=== PATIENT | male | born 1945 | race Caucasian/White ===

== ENCOUNTER 2018-06-28 16:15 | Inpatient (IN) ==
[2018-06-28] MEDS ORDERED: TYLENOL PO ONE (17:07)
[2018-06-28] MEDS ORDERED: VANCOMYCIN 1 GM/NS 1 GM/250 ML IVPB IV ONE (17:07)
[2018-06-28] MEDS ORDERED: ZOSYN 4.5 GM in NS 100 ML IV ONE (17:07)
[2018-06-28 17:18] LABS: BASO# 0.03 X1000 (0.0-0.2); BASO% 0.3 % (0.0-0.8); EOS# 0.06 X1000 (0.0-0.7); EOS% 0.6 % (0.0-10.0); HEMATOCRIT 45.5 % (42.0-52.0); HEMOGLOBIN 15.7 g/dL (14.0-18.0); IMM GRAN# 0.03 X1000 (0.0-0.04); IMM GRAN% 0.3 % (0.0-0.5); LYMPH# 1.16 X1000 (1.2-3.4); LYMPH% 11.3 % (20.5-51.1); MCH 33.1 PG (27-31); MCHC 34.5 g/dL (33-37); MCV 95.8 FL (81-99); MONO# 0.76 X1000 (0.11-0.59); MONO% 7.4 % (1.7-9.3); MPV 9.1 FL (7.4-10.4); NEUT# 8.19 X1000 (1.4-6.5); NEUT% 80.1 % (42.2-75.2); PLT 206 X1000 (130-400); RBC 4.75 XMIL (4.7-6.1); RDW 12.9 % (11.5-14.5); WBC 10.23 X1000 (4.8-10.8)
[2018-06-28] MEDS ORDERED: NS 1,000 ML IV ONE ×2 (17:25→20:31)
--- NOTE | 2018-06-28 17:35 | EKG Report ---
Test Performed on : 06/28/2018 5:14:56 PM Test Reason : afib Blood Pressure : / mmHG Vent. Rate : 109 BPM Atrial Rate : 227 BPM P-R Int : 000 ms QRS Dur : 098 ms QT Int : 336 ms P-R-T Axes : 000 051 -25 degrees QTc Int : 452 ms Atrial fibrillation. with rapid ventricular response. with premature ventricular or aberrantly conduc fracisco complexes. Nonspecific ST abnormality Abnormal QRS-T angle, consider primary T wave abnormality Abnormal ECG No previous ECGs available Unconfirmed Result
[2018-06-28 17:41] LABS: INFLUENZA A NEGATIVE (NEGATIVE); INFLUENZA B NEGATIVE (NEGATIVE)
[2018-06-28 17:54] LABS: INR 2.02; PROTIME 23.8 Seconds (11.0-16.0); PTT 34.9 Seconds (22.3-41.8)
[2018-06-28 17:55] LABS: AGAP 13; ALBUMIN 3.7 g/dL (3.5-5.0); ALKALINE PHOSPHATASE 164 U/L (32-122); BUN 21 mg/dL (8-22); CALCIUM 8.7 mg/dL (8.8-10.2); CHLORIDE 95 mmol/L (98-107); CK PROFILE 52 U/L (24-204); COSMO 265; ESTIMATED GFR > 60; GLUCOSE 95 mg/dL (70-104); GOT 16 U/L (10-34); GPT 15 U/L (10-44); POTASSIUM 4.3 mmol/L (3.5-5.1); SODIUM 131 mmol/L (136-145); TCO2 23 mmol/L (25-35); TOTAL PROTEIN 6.4 g/dL (6.3-8.3)
--- NOTE | 2018-06-28 18:58 | PROVIDER DOCUMENTATION ---
This chart was entered by Alanna Barfield Scribe, acting as scribe for Fili Barfield MD. HPI-General Adult - General Chief Complaint: Weakness Stated Complaint: DIZZY/VERTIGO Time Seen by Provider: 06/28/18 16:53 Source: patient, EMS Allergies/Adverse Reactions: Patient Allergies Allergy/AdvReac Type Severity Reaction Status Date / Time No Known Allergies Allergy Verified 06/28/18 17:10 Home Medications: Home Medication List Medication Instructions Recorded Confirmed Last Taken Type Atenolol 25 mg PO DAILY 04/07/16 06/28/18 04/07/16 History Warfarin [Coumadin] 5 mg PO QHS 04/07/16 06/28/18 04/02/16 History - History of Present Illness -Gen Adult Nature of Presenting Problems: 73 yom presents to ed with cc of weakness. Pt reports last week he seen dr. Ordonez for Bronchitis was given abx and states he felt better. He had dizziness and was orthostatic. reports today to weak to stand. Hx of tia and is on coumadin. Review of Systems - Adult - REVIEW OF SYSTEMS - ADULT Constitutional: denies: chills, fever, fatique Eyes: reports: no symptoms reported Ears, Nose, Mouth & Throat: reports: no symptoms reported Cardiovascular: denies: chest pain, irregular heart rate, orthopnea, syncope Respiratory: denies: cough, shortness of breath, wheezing Gastrointestinal: denies: difficulty swallowing, frequent heartburn, nausea, poor appetite, rectal bleeding, vomiting Genitourinary: reports: no symptoms reported Musculoskeletal: reports: see HPI, muscle weakness (unable to stand by himself) , other (generalized weakness). denies: bone pain, back pain, joint pain, joint swelling, muscle aches, neck pain Integumentary: denies: itching, mole changes, nail changes Neurological: reports: see HPI, dizziness/vertigo. denies: headache/migraines, loss of balance, numbness, paresthesia, seizure, slurred speech, syncope, tremors Psychiatric: reports: no symptoms reported Endocrine: reports: no symptoms reported Hematologic/Lymphatic: reports: no symptoms reported Allergic/Immunologic: reports: no symptoms reported All Other Systems: Reviewed and Negative Past History - Adult - PAST MEDICAL HISTORY-ADULT Review of Records: reports: Nursing Assessment Review, Medications Reviewed Major Childhood Illnesses: reports: denies history Cardiovascular: reports: A-Fib Respiratory: reports: denies history Gastrointestinal: reports: denies history Obstetrical/Gynecological: reports: denies history Genitourinary: reports: denies history Musculoskeletal: reports: denies history Neurological: reports: TIA Endocrine/Immune: reports: denies history Other Conditions: reports: denies history - IMMUNIZATION STATUS Childhood Immunizations: See Nurse Assessment Flu Vaccine: See Nurse Assessment - FAMILY HISTORY Family History: reviewed, not pertinent - SOCIAL HISTORY Smoking: other (former) Physical Exam-General - PHYSICAL EXAM-ADULT Initial Vital Signs Reviewed: Yes - CONSTITUTIONAL General Appearance: appears well, alert, no apparent distress. negative: moderate distress, severe distress, cachetic, obese, thin, anxious, lethargic, slow to respond, obtunded, combative - EYES Eyes: PERRL/EOMI, pink conjunctivae - HEAD, EARS, NOSE, MOUTH & THROAT HENMT: moist mucous membranes, normal ENT inspection, TMs normal, pharynx normal - NECK Neck: non-tender, full range of motion, supple, normal inspection - RESPIRATORY Respiratory: chest non-tender, lungs clear, normal breath sounds, no pleuratic chest pain, no respiratory distress, no accessory muscle use - CARDIOVASCULAR Cardiovascular: no edema, no gallop, no JVD, no murmur, tachycardia, irregularly irregular - GASTROINTESTINAL (ABDOMEN) Abdominal Exam: non tender, soft, no organomegaly, no pulsatile mass - MUSCULOSKELETAL Back Exam: normal inspection, no CVA tenderness, no vertebral tenderness Extremity: normal range of motion, non-tender, other (did not test gait) - SKIN Integumentary: normal color, normal turgor, warm/dry - NEUROLOGIC Neurologic: grossly normal - PSYCHIATRIC Psych/Mental Status: normal mood/affect, normal thought content, normal thought process, oriented x 3 Progress - PLAN OF CARE/RESULTS Progress/Plan/Lab Results: Vital Signs - 8 hr 06/28/18 16:58 06/28/18 18:45 Temperature 102.8 F H 100 F H Pulse Rate 120 H 99 H Respiratory Rate 22 14 Blood Pressure 165/101 141/84 O2 Sat by Pulse Oximetry 94 L 95 Laboratory Results - last 24 hr 06/28/18 06/28/18 06/28/18 17:00 17:00 17:00 WBC 10.23 RBC 4.75 Hgb 15.7 Hct 45.5 MCV 95.8 MCH 33.1 H MCHC 34.5 RDW Std Deviation 12.9 Plt Count 206 MPV 9.1 Immature Gran % (Auto) 0.3 Neut % (Auto) 80.1 H Lymph % (Auto) 11.3 L Storey % (Auto) 7.4 Eos % (Auto) 0.6 Baso % (Auto) 0.3 Immature Gran # (Auto) 0.03 Neut # (Auto) 8.19 H Lymph # (Auto) 1.16 L Storey # (Auto) 0.76 H Eos # (Auto) 0.06 Baso # (Auto) 0.03 PT 23.8 H INR 2.02 PTT (Actin FS) 34.9 Sodium 131 L Potassium 4.3 Chloride 95 L Carbon Dioxide 23 L Anion Gap 13 BUN 21 Creatinine 1.0 Estimated GFR/1.73 m2 > 60 BUN/Creatinine Ratio 21 Glucose 95 POC Glucose Calculated Osmolality 265 Calcium 8.7 L Total Bilirubin 0.70 AST 16 ALT 15 Alkaline Phosphatase 164 H Creatine Kinase 52 Troponin T Total Protein 6.4 Albumin 3.7 Globulin 3.0 Albumin/Globulin Ratio 1.0 Plasma Lactate Influenza A (Rapid) Influenza B (Rapid) 06/28/18 06/28/18 06/28/18 17:00 17:00 17:10 WBC RBC Hgb Hct MCV MCH MCHC RDW Std Deviation Plt Count MPV Immature Gran % (Auto) Neut % (Auto) Lymph % (Auto) Storey % (Auto) Eos % (Auto) Baso % (Auto) Immature Gran # (Auto) Neut # (Auto) Lymph # (Auto) Storey # (Auto) Eos # (Auto) Baso # (Auto) PT INR PTT (Actin FS) Sodium Potassium Chloride Carbon Dioxide Anion Gap BUN Creatinine Estimated GFR/1.73 m2 BUN/Creatinine Ratio Glucose POC Glucose Calculated Osmolality Calcium Total Bilirubin AST ALT Alkaline Phosphatase Creatine Kinase Troponin T < 0.010 Total Protein Albumin Globulin Albumin/Globulin Ratio Plasma Lactate 1.0 Influenza A (Rapid) NEGATIVE Influenza B (Rapid) NEGATIVE 06/28/18 17:38 WBC RBC Hgb Hct MCV MCH MCHC RDW Std Deviation Plt Count MPV Immature Gran % (Auto) Neut % (Auto) Lymph % (Auto) Storey % (Auto) Eos % (Auto) Baso % (Auto) Immature Gran # (Auto) Neut # (Auto) Lymph # (Auto) Storey # (Auto) Eos # (Auto) Baso # (Auto) PT INR PTT (Actin FS) Sodium Potassium Chloride Carbon Dioxide Anion Gap BUN Creatinine Estimated GFR/1.73 m2 BUN/Creatinine Ratio Glucose POC Glucose 91 Calculated Osmolality Calcium Total Bilirubin AST ALT Alkaline Phosphatase Creatine Kinase Troponin T Total Protein Albumin Globulin Albumin/Globulin Ratio Plasma Lactate Influenza A (Rapid) Influenza B (Rapid) Orders Category Date Time Status Cardiac Monitoring DIRECTED Care 06/28/18 16:54 Active IV Insertion ORDERED Care 06/28/18 16:54 Completed Notify MD of + Sepsis Screen NOW Care 06/28/18 16:54 Active CHEST-1 VIEW [RAD] Stat Exams 06/28/18 16:54 Taken BLOOD CULTURE [BLDCUL] Stat Lab 06/28/18 17:00 Ordered CBC WITH DIFF [HEME] Stat Lab 06/28/18 17:00 Completed CK PROFILE [SP CHEM] Stat Lab 06/28/18 17:00 Completed COMPREHENSIVE METABOLIC PANEL [CHEM] Stat Lab 06/28/18 17:00 Completed Flu [INFLUENZA SCREEN PL] Stat Lab 06/28/18 17:10 Completed LACTATE, PLASMA [CHEM] Lab 06/28/18 20:00 Uncollected LACTATE, PLASMA [CHEM] Lab 06/28/18 23:00 Uncollected LACTATE, PLASMA [CHEM] Q3H Lab 06/28/18 17:00 Completed PROTIME WITH INR [COAG] Stat Lab 06/28/18 17:00 Completed PTT [COAG] Stat Lab 06/28/18 17:00 Completed TROPONIN T Stat Lab 06/28/18 17:[address] W/POSS RFLX CULT [URINALYSIS] Stat Lab 06/28/18 16:54 Uncollected 0.9% Sodium Chloride Inj [Ns] 1,000 ml Med 06/28/18 17:25 Discontinued IV 999 mls/hr Acetaminophen [Tylenol] Med 06/28/18 17:07 Discontinued 650 mg PO NOW ONE Piperacillin/Tazobactam [Zosyn] 4.5 gm Med 06/28/18 17:07 Discontinued 0.9% Sodium Chloride Inj [Ns] 100 ml IV NOW Vancomycin 1 gm/Ns Med 06/28/18 17:07 Discontinued 1 gm in 250 ml IV NOW Oxygen Device Stat Oth 06/28/18 16:54 Active EKG [EKG] Stat Ther 06/28/18 16:56 Draft Result Diagrams: 06/28/18 17:00 06/28/18 17:00 - REASSESSMENT Reassessment #1 Time Reassessed: 18:50 Status: improving (CXR CLEAR, NO LEUKOCYTOSIS OR LACTIC ACIDOSIS, HR BETTER: 105 , FEVER DOWN. U/A PENDING.A.GAP IS NL. DOUBT ACTUALLY SEPTIC. 1ST LITER IVF + ZOSYN ARE IN) - EKG 1 Time of EKG reading by physician:: 17:14 EKG Read and Signed by:: Fili Barfield EKG Interpretation (*Must complete 3 of following elements*): Abnormal Rate: 109 Rhythm: afib rvr with rvr QRS: PVC's, other (abberantly conducted complexes) WA Interval: normal ST Wave: normal - CONSULTS/PCP/HOSPITALIST Notification #1 *Consult/PCP/Hospitalist*: DR RICE Time Discussed: 18:54 Consult Disposition: Admit (ICU) Departure - Departure Date of Disposition Decision: 06/28/18 Time of Disposition Decision: 18:54 DIAGNOSIS: Fever, Tachycardia, Weakness, A-fib Disposition: ADMITTED INPATIENT 09 Certified Medical Emergency: Emergent Condition: Fair - Critical Care Note This patient required my direct & personal management of CC.: Yes Total Time (mins): 30 Critical Care Statement: This patient required my direct personal management to treat or rule out processes, the absence of which, could potentiallly result in sudden, clinically significant life or limb threatening deterioration. Attestation - Physician/ ETHAN Attestation Patient care was provided by Advanced Practice Provider:: No The physician spent face to face time with patient:: Yes Advanced Practice Provider documentation review:: Supervising physician onsite and consulted in the evaluation and care of this patient. The physician did have a face to face encounter with the patient. This chart was documented by the indicated scribe, (Alanna Barfield Scribe) and accurately reflects the services I performed and decisions made by me, Fili Barfield MD, as attested by the provider's signature.
--- NOTE | 2018-06-28 19:00 | Diag Imaging Result Doc PS360 ---
EXAM: CHEST-1 VIEW - 06/28/2018 HISTORY: sepsis TECHNIQUE: One view chest COMPARISON: None. FINDINGS: Heart size appears within normal limits. There are possibly mild COPD changes. The lungs otherwise appear grossly clear. There is no pleural effusion or pneumothorax identified. IMPRESSION: Possible mild COPD changes. No other discrete evidence of acute disease. Electronically signed by Mekhi Espana 06/28/2018 6:57 PM
[2018-06-28] MEDS: CARDIZEM 125/NS 125 MG/125 ML IVPB IV SCH (19:52)
[2018-06-28 20:16] LABS: BILIRUBIN URINE NEGATIVE (NEGATIVE); BLOOD URINE NEGATIVE (NEGATIVE); CLARITY CLEAR (CLEAR); COLOR YELLOW; GLUCOSE URINE NEGATIVE (NEGATIVE); KETONE URINE TRACE mg/dL (NEGATIVE); LEUKOCYTES URINE NEGATIVE (NEGATIVE); NITRITE URINE NEGATIVE (NEGATIVE); PH URINE 6.5; PROTEIN URINE TRACE mg/dL (NEGATIVE); UROBILINOGEN URINE NORMAL
[2018-06-28 20:29] LABS: URINE BACTERIA 1+ /HFP; URINE CAST NONE SEEN /LPF; URINE CRYSTAL NONE SEEN /HPF; URINE EPITHELIAL CELLS <10 /HPF (<10); URINE SOURCE CLEAN CATCH; URINE YEAST NONE SEEN /HPF
[2018-06-28] MEDS ORDERED: ZOSYN 3.375 GM in NS 50 ML IV ONE (23:52)
[2018-06-29] MEDS: CARDIZEM 125/NS 125 MG/125 ML IVPB IV SCH (11:37)
[2018-06-29] MEDS ORDERED: VANCOMYCIN IV PER PHARMACY MISC SCH ×2 (12:00→12:15)
[2018-06-29] MEDS ORDERED: ZOFRAN IV PRN (12:13)
[2018-06-29] MEDS: ZOSYN 3.375 GM in NS 50 ML IV SCH ×2 (12:54→17:55)
[2018-06-29] MEDS: LOPRESSOR PO SCH ×2 (12:54→17:55)
[2018-06-29] MEDS: NS 1,000 ML IV SCH ×2 (12:57→22:30)
[2018-06-29] MEDS ORDERED: VANCOMYCIN 2,500 MG in NS 500 ML IV ONE (13:00)
[2018-06-29 13:07] LABS: HEMATOCRIT 39.8 % (42.0-52.0); HEMOGLOBIN 13.7 g/dL (14.0-18.0); MCH 33.4 PG (27-31); MCHC 34.4 g/dL (33-37); MCV 97.1 FL (81-99); MPV 9.1 FL (7.4-10.4); RBC 4.1 XMIL (4.7-6.1); RDW 12.7 % (11.5-14.5); WBC 8.45 X1000 (4.8-10.8)
--- NOTE | 2018-06-29 13:38 | PROGRESS NOTE ---
DATE: 06/29/2018 SUBJECTIVE: The patient has no focal complaints. OBJECTIVE: Vital Signs: Blood pressure is 140/85, heart rate 82, respiratory rate of 34, temperature 101.2 degrees, 93% on room air. Cardiovascular: He is rate controlled. Pulmonary: Bilateral breath sounds, diminished at the bases, but no rales or rhonchi. GI: Soft, nontender. Skin: He does have a bruising on his right flank. LABORATORY DATA: I have no new data. His plasma lactate was negative. PROBLEM LIST: 1. Fever. He still has fever, with unclear etiology. All his testing thus far is negative. We will pursue CT thorax again to evaluate for possible underlying pneumonia or infection. If that is negative, we will get an abdominal pelvic CT, then we may need to get an ID opinion. 2. Atrial fibrillation, with rapid ventricular response, now rate controlled. I am going to switch him to Lopressor and see how he does on that dose. For right now, holding his Coumadin, just until we make sure he has not had any internal bleeding. DISPOSITION: I think he is stable for the floor. If afebrile, he could go home soon, assuming we have an etiology. cc: Daniel Naidu MD
[2018-06-29 13:39] LABS: AGAP 10; BUN 18 mg/dL (8-22); CALCIUM 8.3 mg/dL (8.8-10.2); CHLORIDE 95 mmol/L (98-107); COSMO 259; CREATININE 0.9 mg/dL (0.7-1.2); ESTIMATED GFR > 60; GLUCOSE 91 mg/dL (70-104); POTASSIUM 4.5 mmol/L (3.5-5.1); SODIUM 128 mmol/L (136-145); TCO2 23 mmol/L (25-35)
--- NOTE | 2018-06-29 13:44 | HISTORY AND PHYSICAL ---
The patient is seen on 06/28 in the ER. CHIEF COMPLAINT: Weakness. HISTORY OF PRESENT ILLNESS: This is a 73-year-old male, with history of atrial fibrillation on chronic Coumadin, but that is about it, who came in with shortness of breath, dizziness and orthostasis actually. He came in. He was seen by Stanislav Ordonez MD about a week ago and treated for bronchitis. Came in because of chest pain and dizziness. Workup in the ER showed fever, but no other major issues. He was not anemic. Unclear source of fever though. His urine was clear. Chest x-ray, rest of his labs are stable. The patient admitted for febrile illness. He also had atrial fibrillation with RVR. PAST MEDICAL HISTORY: 1. Atrial fibrillation. 2. TIA. PAST SURGICAL HISTORY: Denied major issues. The patient is doing better. No surgeries. FAMILY HISTORY: Reviewed, noncontributory. SOCIAL HISTORY: No tobacco or ethanol. ALLERGIES: No known drug allergies. MEDICATIONS: He takes atenolol 25 and warfarin 5. REVIEW OF SYSTEMS: No weight loss or appetite change. Cardiovascular: He is complaining of some chest discomfort, but he fell about a week ago and hit his chest and has had discomfort since that time. No nausea, vomiting. No diarrhea. No dysuria. No urinary issues. PHYSICAL EXAMINATION: VITAL SIGNS: Blood pressure was 141/84, heart rate of 105, respiratory rate 28. Temperature 99.2. T-max was 102.8. GENERAL: A well-developed male in no acute distress. HEENT: Head exam is normocephalic, atraumatic. Eye exam: Pupils equal, round, reactive to light. Extraocular movements regular rate and rhythm. Moist mucous membranes. NECK: Supple. CARDIOVASCULAR: He was tachy and irregular. PULMONARY: Diminished breath sounds, but no wheezes, rales. GI: Soft, nontender, nondistended. Bowel sounds are positive. LABORATORY DATA: White count is 10, hemoglobin and hematocrit 15 and 45. Basic was normal except potassium of 131. Urine was clear. Flu test was clear. Chest x-ray was unremarkable. ASSESSMENT: A 73-year-old male with history of atrial fibrillation, presenting with fever, chest discomfort, and atrial fibrillation with rapid ventricular response. 1. Fever. Unclear etiology. We will observe, monitor empiric antibiotics and follow. His only major complaint is chest discomfort, which all his blood work has been negative. He does not have clear evidence of sepsis and it feels like concern he has contusion in his chest related to his coagulopathy and that may be causing his fevers. We will get a CT of his chest and kind of figure that out. 2. Atrial fibrillation with rapid ventricular response. Initiate IV Cardizem until rate controlled and follow. 3. Transient ischemic attack history, apparently well-controlled. DISPOSITION: Pending his clinical status. He will go to the ICU though because he is on IV Cardizem for atrial fibrillation, which is still not rate controlled in the 130s-140s. cc: MD Stanislav Van MD
--- NOTE | 2018-06-29 15:27 | Diag Imaging Result Doc PS360 ---
CT THORAX W/CONTRAST - 06/29/2018 INDICATION: pneumonia COMPARISON: Chest x-ray 06/28/2018 FINDINGS: There is no adenopathy. Heart and great vessels are normal. There is mild COPD. The lungs and airways are clear. There is some dependent atelectasis. Aside from a right renal cyst. Upper abdominal images appear normal. Bony structures are intact. IMPRESSION: COPD. Mild dependent atelectasis. No acute disease. This exam was performed using automated exposure control, adjustment of mA or kV according to patient size, and/or use of iterative reconstruction technique Electronically signed by Adelso De La Rosa 06/29/2018 3:26 PM
[2018-06-29] MEDS: TYLENOL PO PRN (17:55)
[2018-06-29] MEDS ORDERED: COUMADIN PO SCH (21:00)
[2018-06-30] MEDS: LOPRESSOR PO SCH ×3 (00:59→11:57)
[2018-06-30] MEDS: ZOSYN 3.375 GM in NS 50 ML IV SCH ×4 (01:00→18:06)
[2018-06-30] MEDS: TYLENOL PO PRN (05:09)
[2018-06-30] MEDS ORDERED: VANCOMYCIN 2,000 MG in NS 500 ML IV SCH (06:00)
[2018-06-30 07:30] LABS: BASO# 0.01 X1000 (0.0-0.2); BASO% 0.1 % (0.0-0.8); EOS# 0.09 X1000 (0.0-0.7); EOS% 1.3 % (0.0-10.0); HEMATOCRIT 41.2 % (42.0-52.0); IMM GRAN# 0.01 X1000 (0.0-0.04); IMM GRAN% 0.1 % (0.0-0.5); LYMPH% 15.6 % (20.5-51.1); MCH 32.9 PG (27-31); MCV 96.7 FL (81-99); MONO% 8.5 % (1.7-9.3); MPV 9.6 FL (7.4-10.4); NEUT# 5.26 X1000 (1.4-6.5); NEUT% 74.4 % (42.2-75.2); PLT 161 X1000 (130-400); RBC 4.26 XMIL (4.7-6.1); RDW 12.8 % (11.5-14.5); WBC 7.07 X1000 (4.8-10.8)
[2018-06-30 07:42] LABS: AGAP 10; BUN 18 mg/dL (8-22); CHLORIDE 100 mmol/L (98-107); COSMO 268; CREATININE 0.8 mg/dL (0.7-1.2); ESTIMATED GFR > 60; GLUCOSE 94 mg/dL (70-104); POTASSIUM 4.2 mmol/L (3.5-5.1); SODIUM 133 mmol/L (136-145); TCO2 23 mmol/L (25-35)
[2018-06-30 07:48] LABS: INR 1.65; PROTIME 20.3 Seconds (11.0-16.0)
[2018-06-30] MEDS: NS 1,000 ML IV SCH (10:32)
--- NOTE | 2018-06-30 14:30 | Diag Imaging Result Doc PS360 ---
EXAM: CT ABD/PELVIS W/PO AND IV CON - 06/30/2018 HISTORY: weight loss, cachexia, dysphagia TECHNIQUE: CT abdomen/pelvis with oral and intravenous contrast COMPARISON: None. FINDINGS: There is dependent atelectasis at the bilateral lung bases, as well as a tiny left pleural effusion. There is an apparent tiny cysts in the left lobe of the liver. There are no other substantial abnormalities of the liver, spleen, adrenal glands, or pancreas identified. There are no calcified gallstones or pericholecystic inflammation identified. There is a 3.3 cm cyst which arises at the upper right kidney. The bilateral kidneys otherwise enhance homogeneously. There is no hydronephrosis. There are no substantially enlarged lymph nodes identified. There is minimal ectasia of the infrarenal aorta measuring up to 2.3 cm. There are atherosclerotic calcifications noted. There are lumbar spine degenerative changes noted with apparent spinal stenosis at some levels, most conspicuous at L4-5. There is no evidence of bowel obstruction. The appendix is unremarkable. There is a tiny fat-containing umbilical hernia. There is a moderate amount retained fecal debris in the colon suggesting constipation. There is colonic diverticulosis, primarily at the descending and sigmoid colon. There is apparent minimal scarring at the left upper pelvis, possibly from prior diverticulitis. There is no discrete diverticulitis identified at this time. There is no free air, substantial free fluid, or abscess identified. IMPRESSION: Evidence of constipation. Colonic diverticulosis. No discrete diverticulitis. No bowel obstruction. No free air. No abscess. Minimal ectasia of infrarenal aorta up to 2.3 cm. Lumbar spine degenerative changes with apparent spinal stenosis at some levels, most conspicuous at L4-5. This exam was performed using automated exposure control, adjustment of mA or kV according to patient size, and/or use of iterative reconstruction technique. Electronically signed by Mekhi Espana 06/30/2018 2:28 PM
[2018-06-30] MEDS ORDERED: NORCO-7.5 PO ONE (14:42)
[2018-06-30 15:31] VITALS: BP 132/80
--- NOTE | 2018-07-01 09:57 | DISCHARGE SUMMARY ---
ADMISSION DATE: 06/28/2018 DISCHARGE DATE: 06/30/2018 DISCHARGE DIAGNOSES: 1. Fever. 2. Bronchitis. 3. Constipation. HISTORY AND HOSPITAL COURSE: The patient is a very pleasant, 73-year-old gentleman who came in with dizziness. He fell and hit his chest. He came in with fever with really unclear source. He had no white count. His sodium was a bit on the low side. His INR was therapeutic. Urine was clear. Blood cultures have been clear. Sputum thus far has been clear. CT of his chest just showed questionable emphysema, although his smoking history is remote and some dependent atelectasis. Abdominal pelvic CT just showed constipation, but there was no hematoma or anything associated with his trauma. Fevers, defervesced after the first 48 hours. He had a temperature of 102.8, 101.2 and then on the 16th was afebrile. I felt stable for discharge. DISCHARGE MEDICATIONS: Warfarin 5, atenolol 25, Augmentin 875 q.12 for 7 days and [employer] p.r.n. FOLLOWUP: The [facility]. His INR subtherapeutic 1.65 today. His Coumadin dose will be 7.5 because he has an alternate dosing. He will need to follow up with Dr. Ordonez in 1 to 2 weeks. TIME SPENT: 32 minutes discharge. cc: MD Stanislav Van MD [facility]
== END 2018-06-30 20:09 | disposition home or self-care (01) | DRG 310 ==
LOC: P.ED 16:15 → P.ICU 19:39 → P.MEDSURG 06-29 20:46
PROVIDERS: ATTEND Internal Medicine
CPT/HCPCS: 36415; 71010; 71045; 71260; 74177; 80048; 80053; 81001; 82550; 82948; 83605; 84484; 85025; 85027; 85610; 85730; 87040; 87070; 87205; 87275; 87276; 87633; 87804; 89220; 93005; 94761; 96365; 96367; 96368; 99285; 99291; A9270; J2543; J3370; J7030; J7040; Q9967; XXXXX

== ENCOUNTER 2019-07-05 10:42 | Inpatient (IN) ==
--- NOTE | 2019-07-05 11:20 | Diag Imaging Result Doc PS360 ---
CT HEAD/C-SPINE W/O CONTRAST - 07/05/2019 INDICATION: head injury/anticoagulants COMPARISON: None FINDINGS: Head CT: The ventricles and sulci are normal in size and contour. No intracranial mass or hemorrhage. There is mild periventricular white matter chronic microvascular ischemia, notably in the parietal lobes. The skull is intact. The sinuses are clear. Cervical spine: Alignment is anatomic. Vertebral body heights are preserved. There is advanced disc degeneration at C5-C6 with severe narrowing, sclerosis, and osteophyte formation. There is lesser degeneration at other levels as well. No fracture or subluxation. IMPRESSION: No acute injury. This exam was performed using automated exposure control, adjustment of mA or kV according to patient size, and/or use of iterative reconstruction technique Electronically signed by Adelso De La Rosa 07/05/2019 11:17 AM
[2019-07-05] MEDS ORDERED: CARDIZEM IV ONE (11:25)
--- NOTE | 2019-07-05 11:39 | Diag Imaging Result Doc PS360 ---
CHEST-1 VIEW - 07/05/2019 INDICATION: cough COMPARISON: 06/28/2018 FINDINGS: The lungs are normally expanded and clear. Heart size and mediastinal contours are normal. No pneumothorax or pleural effusion. IMPRESSION: Negative exam. Electronically signed by Adelso De La Rosa 07/05/2019 11:37 AM
[2019-07-05 12:12] LABS: BASO# 0.02 X1000 (0.0-0.2); BASO% 0.2 % (0.0-0.8); HEMATOCRIT 36.1 % (42.0-52.0); HEMOGLOBIN 12.3 g/dL (14.0-18.0); IMM GRAN# 0.03 X1000 (0.0-0.04); IMM GRAN% 0.3 % (0.0-0.5); LYMPH# 0.88 X1000 (1.2-3.4); LYMPH% 8.8 % (20.5-51.1); MCH 32.9 PG (27-31); MCHC 34.1 g/dL (33-37); MCV 96.5 FL (81-99); MONO# 0.98 X1000 (0.11-0.59); MONO% 9.8 % (1.7-9.3); MPV 9.5 FL (7.4-10.4); NEUT# 8.14 X1000 (1.4-6.5); NEUT% 80.9 % (42.2-75.2); PLT 150 X1000 (130-400); RBC 3.74 XMIL (4.7-6.1); RDW 12.8 % (11.5-14.5); WBC 10.05 X1000 (4.8-10.8)
[2019-07-05 12:36] LABS: INR 2.15; PROTIME 24.5 Seconds (11.0-16.0)
[2019-07-05 12:37] LABS: PTT 34.9 Seconds (22.3-41.8)
[2019-07-05 12:43] LABS: AGAP 10; ALB/GLOB RATIO 2.1; ALBUMIN 3.6 g/dL (3.5-5.0); ALKALINE PHOSPHATASE 89 U/L (32-122); BUN 24 mg/dL (8-22); CALCIUM 8.4 mg/dL (8.8-10.2); CHLORIDE 95 mmol/L (98-107); COSMO 266; ESTIMATED GFR > 60; GLUCOSE 149 mg/dL (70-104); GOT 38 U/L (10-34); GPT 16 U/L (10-44); POTASSIUM 4.5 mmol/L (3.5-5.1); SODIUM 129 mmol/L (136-145); TCO2 24 mmol/L (25-35); TOTAL BILIRUBIN 1.33 mg/dL (0.20-1.00); TOTAL PROTEIN 5.3 g/dL (6.3-8.3)
[2019-07-05 12:44] LABS: CK PROFILE 1465 U/L (24-204)
[2019-07-05] MEDS: CARDIZEM 100 MG/NS 100 MG/100 ML IVPB IV SCH (12:57)
[2019-07-05 13:25] LABS: CK INDEX 0.3 (0.0-2.5); CK-MB 4.52 ng/mL (0.0-5.0)
--- NOTE | 2019-07-05 13:54 | EKG Report ---
Test Performed on : 07/05/2019 11:14:19 AM Test Reason : FALL Blood Pressure : / mmHG Vent. Rate : 107 BPM Atrial Rate : 127 BPM P-R Int : 000 ms QRS Dur : 088 ms QT Int : 344 ms P-R-T Axes : 000 056 -77 degrees QTc Int : 459 ms Atrial fibrillation. with rapid ventricular response. with premature ventricular or aberrantly conduc fracisco complexes. ST & T wave abnormality, consider inferior ischemia Abnormal ECG When compared with ECG of 28-JUN-2018 17:14, ST now depressed in Inferior leads T wave inversion more evident in Inferior leads Unconfirmed Result
--- NOTE | 2019-07-05 14:01 | Diag Imaging Result Doc PS360 ---
XRAY PELVIS W/HIP 2-3VW LT - 07/05/2019 INDICATION: fall, injury TECHNIQUE: Three views COMPARISON: None FINDINGS: Bones are intact and normally aligned. There is mild degenerative spurring of the hips bilaterally. There is also mild to moderate degeneration of both sacroiliac joints. IMPRESSION: No acute injury. Electronically signed by Adelso De La Rosa 07/05/2019 1:59 PM
[2019-07-05] MEDS ORDERED: ZOFRAN IV PRN (14:40)
[2019-07-05 16:10] LABS: URINE SOURCE CLEAN CATCH
[2019-07-05 16:14] LABS: BILIRUBIN URINE NEGATIVE (NEGATIVE); BLOOD URINE NEGATIVE (NEGATIVE); COLOR YELLOW; GLUCOSE URINE NEGATIVE (NEGATIVE); KETONE URINE TRACE mg/dL (NEGATIVE); LEUKOCYTES URINE NEGATIVE (NEGATIVE); NITRITE URINE NEGATIVE (NEGATIVE); PH URINE 5.5; PROTEIN URINE 30 mg/dL (NEGATIVE); TURBIDITY URINE CLEAR (CLEAR); UROBILINOGEN URINE 2 mg/dL (NORMAL)
[2019-07-05 16:16] LABS: UR EPITHELIAL CELLS <10 /HPF (<10); URINE BACTERIA NEGATIVE /HPF; URINE RBC <10 /HPF (<10); URINE WBC <10 /HPF (<10)
[2019-07-05 16:27] LABS: URINE CRYSTALS NONE SEEN; URINE YEAST NONE SEEN
--- NOTE | 2019-07-05 18:13 | HISTORY AND PHYSICAL ---
CHIEF COMPLAINT: Fall and lower extremity weakness. HISTORY OF PRESENT ILLNESS: This is a 74-year-old gentleman with a history of atrial fibrillation on chronic anticoagulation and hypertension. He presents to the emergency room after falling last night. The patient states that he was walking into his shed in his backyard. He opened the door, and his legs gave out, would not hold his body up, and he fell. He denied any loss of consciousness. He stated that it was about 30 minutes he was unable to get up as he could not make his arms and legs work. He stated he laid there approximately 30 minutes unable to get up as he did not have the strength in his arms and legs. He attempted to get on his hands and knees, and was unable to do that also. He finally reached his son-in-law on the phone who came to his house. He says the son-in-law had to pick him up and set him in a chair, brought a wheelchair, had to pick him up, sit him in the wheelchair, and pushed him to the house. During the night, he got up once to urinate stating that he had to use the wheelchair. This morning when he was unable to stand he called 911. He denied any injury prior to this. He denied any decreased sensation in his extremities. Mr. Watt states that he developed a cough about 2 weeks ago. He went and saw his primary care physician who gave him a steroid shot, and placed him on amoxicillin. He states that over these last 2 weeks that he has had increasing weakness, and over the last 2 to 3 days he has developed a tremor in both hands. He denies any syncope or dizziness, any chest pain or palpitations, any decreased sensation to extremities, or any fevers or chills. PAST MEDICAL HISTORY: Atrial fibrillation on chronic anticoagulation. Hypertension. PAST SURGICAL HISTORY: Denies. SOCIAL HISTORY: He is , and lives with his . He denies any alcohol, tobacco, or illicit drug use. ALLERGIES: Doxycycline which causes nausea and vomiting. HOME MEDICATIONS: Coumadin and atenolol 25 p.o. daily. REVIEW OF SYSTEMS: Discussed with patient with pertinent positives stated in the HPI. He denied any syncope or dizziness, any chest pain, palpitations, any productive cough, fevers, chills, night sweats, recent weight loss or weight gain, any nausea, vomiting, diarrhea, constipation, black or bloody vomitus or stools, any hematuria, dysuria, frequency or urgency. PHYSICAL EXAMINATION: GENERAL: This is a 74-year-old gentleman who is lying on the stretcher in the emergency room in no distress. VITAL SIGNS: Blood pressure 152/80 with a heart rate of 79, respirations are 18 to 20, temperature 98.3 degrees with O2 saturations 93 to 98 percent on room air. EYES: Pupils equal, round, and react to light. EOMs are intact. Sclerae anicteric. HEENT: Head is normocephalic, atraumatic. Mucous membranes are moist. NECK: Supple with trachea midline. CARDIOVASCULAR: Irregularly regular rate and rhythm. S1 and S2 appreciated. He has no lower extremity edema. Calves are nontender. Bilateral peripheral pulses palpable x4 extremities. PULMONARY: Breath sounds are clear with no increased work of breathing noted. Chest rises and falls symmetric with respiration. Chest wall is nontender to palpation. GASTROINTESTINAL: Soft, nontender, and nondistended. Bowel sounds in all 4 quadrants. GENITOURINARY: No CVA or suprapubic tenderness. NEUROLOGIC: He is alert and oriented x3. He has 5/5 muscle strength to all 4 extremities. Compensation Adjuster are strong and equal. He has no plantar drift. [id number] is 3/3 bilateral. He has 5/5 strength to right lower extremity. He is able to lift his foot off the bed and hold it. He can hold his foot up against resistance. Left lower extremity is limited to thigh pain as his thigh is swollen. LABORATORY: 1. WBC is 10 with hemoglobin 12.3, hematocrit 36.1, and platelets 150,000. INR is 2.15. Sodium 129, potassium 4.5, BUN 24, creatinine 1 with a glucose of 149. CPK is 1465 with troponin T of 15. Blood cultures are pending. CT of the head reveals no acute injury. 2. CT of the C-spine no acute injury. There is advanced disk degeneration at C5-C6 with severe narrowing, sclerosis and osteophyte formation. There is lesser degeneration at other levels. No fracture or subluxation. 3. Chest x-ray was a negative exam. No pneumothorax or pleural effusion. 4. Hip and pelvis x-ray. Bones are intact and normally aligned. There is mild degenerative spurring of the hips bilateral. There is mild to moderate degeneration of both sacroiliac joints. ASSESSMENT AND PLAN: 1. Generalized weakness and fall. 2. Left thigh pain and edema secondary to fall. 3. Atrial fibrillation with rapid ventricular response in a patient with known chronic atrial fibrillation. 4. Rhabdomyolysis. 5. Hypertension. 6. Extremity weakness. 7. Hyponatremia. PLAN: The patient will be admitted to the hospital. He will be placed on telemetry, neuro checks every 4 hours. Check CBC, CMP, and total CPK in the morning. We will continue Cardizem drip. We will add saline at 75 mL an hour. We will consult physical therapy. Neurovascular checks to left lower extremity. Plan was discussed with Dr. Naidu. Further treatments pending hospital course. Dictated by DIOGO Gonzalez for Daniel Naidu MD cc: DIOGO Gonzalez MD
[2019-07-05] MEDS: NS 1,000 ML IV SCH (18:37)
--- NOTE | 2019-07-05 19:35 | PROGRESS NOTE ---
DATE: 07/05/2019 The patient is doing okay. He came in today after a bout of an upper respiratory infection, and he was admitted for atrial fibrillation with rapid ventricular response. He has been having these episodes of recurrent weakness, so we are looking at trying to get that stabilized. For atrial fibrillation with rapid ventricular response, he is on Cardizem. He had previously been on atenolol and it had been decreased to 25 mg from 50 mg, but I do not think that was a recent change. We will continuing anticoagulation and follow. Generalized weakness. We will get a Dr. Pope to evaluate the patient. We will also check a sedimentation rate, B12, folate. cc: Daniel Naidu MD
[2019-07-05] MEDS: COUMADIN PO SCH (20:08)
[2019-07-05] MEDS: AMOXIL PO SCH (20:08)
[2019-07-06] MEDS: CARDIZEM 100 MG/NS 100 MG/100 ML IVPB IV SCH (00:35)
[2019-07-06] MEDS: NORCO-5 PO PRN ×2 (03:07→20:30)
[2019-07-06] MEDS: NS 1,000 ML IV SCH ×2 (05:53→20:31)
[2019-07-06] MEDS: PRILOSEC PO SCH ×2 (05:53→06:18)
[2019-07-06] MEDS: AMOXIL PO SCH ×3 (05:53→20:30)
[2019-07-06 06:11] LABS: BASO# 0.04 X1000 (0.0-0.2); BASO% 0.5 % (0.0-0.8); EOS# 0.03 X1000 (0.0-0.7); EOS% 0.4 % (0.0-10.0); HEMATOCRIT 32.1 % (42.0-52.0); HEMOGLOBIN 10.7 g/dL (14.0-18.0); IMM GRAN# 0.03 X1000 (0.0-0.04); IMM GRAN% 0.4 % (0.0-0.5); LYMPH# 1.25 X1000 (1.2-3.4); LYMPH% 16.1 % (20.5-51.1); MCH 32.8 PG (27-31); MCHC 33.3 g/dL (33-37); MCV 98.5 FL (81-99); MONO# 0.77 X1000 (0.11-0.59); MONO% 9.9 % (1.7-9.3); MPV 9.6 FL (7.4-10.4); NEUT# 5.64 X1000 (1.4-6.5); NEUT% 72.7 % (42.2-75.2); PLT 130 X1000 (130-400); RBC 3.26 XMIL (4.7-6.1); RDW 12.9 % (11.5-14.5); WBC 7.76 X1000 (4.8-10.8)
[2019-07-06 06:25] LABS: INR 2.2
[2019-07-06 06:32] LABS: AGAP 8; ALB/GLOB RATIO 1.5; ALBUMIN 3.2 g/dL (3.5-5.0); ALKALINE PHOSPHATASE 75 U/L (32-122); BUN 18 mg/dL (8-22); CALCIUM 8.2 mg/dL (8.8-10.2); CHLORIDE 99 mmol/L (98-107); COSMO 267; CREATININE 0.9 mg/dL (0.7-1.2); ESTIMATED GFR > 60; GLUCOSE 116 mg/dL (70-104); GOT 36 U/L (10-34); GPT 14 U/L (10-44); SODIUM 132 mmol/L (136-145); TCO2 25 mmol/L (25-35); TOTAL BILIRUBIN 1.37 mg/dL (0.20-1.00); TOTAL PROTEIN 5.3 g/dL (6.3-8.3)
[2019-07-06] MEDS ORDERED: CARDIZEM PO SCH (08:45)
[2019-07-06] MEDS ORDERED: LOPRESSOR PO ONE (11:25)
--- NOTE | 2019-07-06 11:54 | CARDIOLOGY CONSULTATION ---
DATE: 07/06/2019 HISTORY OF PRESENT ILLNESS: A 74-year-old gentleman with known chronic atrial fibrillation and hypertension who came to the emergency room after he fell. He recently had upper respiratory tract infection and was given steroid shot and antibiotics. He went out to his yard, opened the door, and he said he felt weak and fell. He did not lose consciousness, and he laid there for about 30 minutes and then subsequently came back home, and he was unable to stand because of the weakness and pain in his legs, and he was brought to the emergency room, was admitted. He also noticed bruising on his left hip and left rib cage and hit his head as well. He did not have any syncopal episode. He had a similar episode last year when he again at that time had a respiratory tract infection as well. No cardiac symptoms suggestive of angina. He has chest pain at the site where he fell. There is no orthopnea or paroxysmal nocturnal dyspnea. He has otherwise been active. PAST MEDICAL HISTORY: 1. Chronic atrial fibrillation. 2. Chronic anticoagulation therapy. SOCIAL HISTORY: He is and lives with his . ALLERGIES: He is allergic to doxycycline. HOME MEDICATIONS: Include beta-blockers and Coumadin. REVIEW OF SYSTEMS: A 14-point review of systems:Gastrointestinal System: There is no history of nausea, vomiting, diarrhea. There is no history of hematemesis or melena. Central Nervous System: No focal weakness to suggest a CVA or TIA. Genitourinary System: There is no dysuria or hematuria. PHYSICAL EXAMINATION: Vital Signs: Blood pressure was 152/80 when he came to the emergency room. Heart rate 110 to 120, was started on a Cardizem drip. Cardiac: First and second heart sounds were heard. There was no S3 gallop. Respiratory System: Lungs have normal air entry. There are no crepitations or rhonchi. Abdomen: Soft, nontender. Extremities: Examination of his extremities revealed bruising on the left side of his leg on his left leg. HEENT: He had some bruising on his left occipital region. DIAGNOSTIC DATA: CT scan of his head was unremarkable. He had significant C-spine, nonacute changes with narrowing, sclerosis, and osteophyte formation. No fracture or subluxation noted. WBC 10, hemoglobin 12.3, hematocrit 36, platelet count of 150,000. Sodium 129, potassium 4.5, BUN 24, creatinine 1. CPK 1465. Troponin was negative. ASSESSMENT AND PLAN: 1. Mr. Radha Watt is a 74-year-old gentleman with a history of chronic atrial fibrillation, hypertension, had recent respiratory tract infection, and had a steroid injection as well. He had been improving with that; however, he fell at home, sustained injury as mentioned above. From a cardiac standpoint, he was started on Cardizem drip given his atrial fibrillation with rapid ventricular rate. He is off his drip; however, his heart rate is varying from 120, especially he sits up goes up to 140. He was on atenolol 25. We will increase his beta- blockers and put him on metoprolol 50 mg twice daily. If he cannot control his heart rate with that, we will add Cardizem if required. 2. We will get an echocardiogram to assess cardiac and valvular function. 3. He is anticoagulated chronically with Coumadin. PT/INR were therapeutic. I have not made any changes. 4. As far as his falls are concerned, he has had a similar episode of a fall and he has significant cervical disk disease based on the scans. I have recommended that he follow up with Orthopedics as an outpatient. 5. He has rhabdomyolysis secondary to fall. 6. Hyponatremia is noted, not on any diuretics. I would recommend a followup with [facility] as well. cc: Scout Hernandez MD
--- NOTE | 2019-07-06 14:56 | PROGRESS NOTE ---
DATE: 07/06/2019 SUBJECTIVE: Patient has no major complaints. OBJECTIVE: Blood pressure is 137/86, heart rate 94, respiratory rate of 26, temperature 98.2 degrees, 95% on room air. Cardiovascular: Regular rate and rhythm. Pulmonary: Bilateral breath sounds clear to auscultation. GI: Soft, nontender, nondistended. Bowel sounds were positive. Extremities: Have no clubbing or cyanosis. Lymphatic Examination: No peripheral edema. Neurological: Examination was nonfocal. Laboratory Data: White count is 7, hemoglobin and hematocrit 10 and 32, platelets 130,000. INR 2.2. Sodium 132. PROBLEM LIST: 1. The CPK was up a little bit at 1327. Atrial fibrillation with rapid ventricular response. Cardiology has seen him and switched him to Lopressor at a higher dose. He has been on a Cardizem drip. We may add that back if we need rate control. INR is therapeutic. 2. Anemia. I really am not entirely sure what is going on here with that. We will check B12 and folate levels. We will pursue an iron deficiency workup and see how he does. 3. Frequent falls and lower extremity weakness. We will get a neurology opinion. Dr. Palomo has been consulted. We will continue to follow. 4. Anticipate hopeful discharge tomorrow if he is rate controlled. cc: Daniel Naidu MD
[2019-07-06] MEDS ORDERED: TYLENOL PO PRN (17:05)
[2019-07-06] MEDS: LOPRESSOR PO SCH (20:30)
[2019-07-06] MEDS: COUMADIN PO SCH (20:30)
[2019-07-06] MEDS ORDERED: LOPRESSOR PO SCH (21:00)
[2019-07-07] MEDS: AMOXIL PO SCH ×3 (05:39→21:51)
[2019-07-07] MEDS: PRILOSEC PO SCH ×2 (05:39→06:03)
[2019-07-07 06:27] LABS: INR 2.16; PROTIME 24.6 Seconds (11.0-16.0)
[2019-07-07 06:34] LABS: HEMATOCRIT 28.7 % (42.0-52.0); HEMOGLOBIN 9.7 g/dL (14.0-18.0); MCHC 33.8 g/dL (33-37); MCV 100.7 FL (81-99); MPV 9.5 FL (7.4-10.4); RBC 2.85 XMIL (4.7-6.1); RDW 13.2 % (11.5-14.5); WBC 6.59 X1000 (4.8-10.8)
[2019-07-07 06:49] LABS: AGAP 8; BUN 17 mg/dL (8-22); CALCIUM 8.3 mg/dL (8.8-10.2); CHLORIDE 100 mmol/L (98-107); COSMO 266; CREATININE 0.8 mg/dL (0.7-1.2); ESTIMATED GFR > 60; GLUCOSE 96 mg/dL (70-104); IRON SATURATION 34 %; MAGNESIUM 1.8 mg/dL (1.5-2.7); POTASSIUM 4.4 mmol/L (3.5-5.1); SODIUM 132 mmol/L (136-145); TCO2 24 mmol/L (25-35); TIBC 169 ug/dL; TOTAL IRON 58 ug/dL (53-167); UNBOUND IRON 111 ug/dL (112-346)
[2019-07-07 07:05] LABS: FERRITIN 387 ng/mL (30-400)
--- NOTE | 2019-07-07 07:12 | NEUROLOGY CONSULTATION ---
DATE: 07/06/2019 REASON FOR CONSULTATION: Weakness and falls. HISTORY OF PRESENT ILLNESS: This is a 74-year-old male with a history of atrial fibrillation on chronic anticoagulation and hypertension. He was admitted yesterday after a fall and complaints of generalized weakness. History is from the patient. He states that he was ill recently with a respiratory infection. He was given a steroid and an antibiotic. After taking the medication for a few days, he began to feel gradually weaker. He became tremulous. On the day of admission, he had gone out to his shed and fallen and was unable to get himself up. His son-in-law was summoned who was able to get him up and into a wheelchair that they happened to have. He ultimately decided to come to the emergency department as his symptoms had not improved. He did not have loss of consciousness. He did fall injuring his left thigh, ribs on the left, and the left eye. He reports his weakness has been steady over the last 24 hours. It has not worsened, has not improved. He denies sensory loss. Denies back pain, bowel or bladder discomfort. He denies pain in the legs other than the left thigh. He denies having tripped on an object. Rather he states his legs just finally gave out on him after being so weak. He denies dizziness or lightheadedness. He also denies diplopia, difficulty keeping his eyes open or keeping his head up. His weakness feels constant and does not vary during the day. Nothing worsens or improves it. He reports a very similar episode happening 13 months ago following another steroid medication and antibiotics. His symptoms gradually recovered after about 4 or 5 weeks and he felt back to normal. PAST MEDICAL HISTORY: Atrial fibrillation on anticoagulation, hypertension. SOCIAL HISTORY: He is . Lives with his . No tobacco alcohol or illicits. FAMILY HISTORY: No similar medical illnesses. ALLERGIES: Listed to doxycycline. HOME MEDICATIONS: Include Coumadin and atenolol. REVIEW OF SYSTEMS: Balance of 12 conducted and otherwise negative except that detailed in the HPI. PHYSICAL EXAMINATION: Vital Signs: He has been afebrile. Blood pressure 137/86, pulse 90s, respirations 25, and oxygen saturation 97% on room air. Neurologic Examination: Mr. Watt is supine in bed. He is awake, alert, oriented. Speech fluent. He is attentive and spontaneous. He seems a little bit anxious. He talks quickly at times. He follows simple and complex commands. No language disturbance on brief bedside testing. No significant dysarthria. Pupils are equal, round, and reactive to bright light. Gaze is conjugate. Ocular movements appear full. Visual correia intact to direct confrontational testing. He can hear. Face is symmetric with equal activation. Facial sensation reported intact. There is no ptosis with prolonged upgaze. Jaw strength good. Tongue strength appears good. Neck flexion 5/5. Neck extension 5/5. Shoulder shrug intact. Tone is equal in the limbs. He has a difficult time relaxing. On strength testing, he appears 5/5 both distally and proximally. On repetitive testing of the deltoids, he seems to fatigue some, but that might actually be more related to his gradually drifting upright posture as opposed to true weakness, I am not certain. He reports some diminished sense to pinprick in a stocking-glove pattern in the distal limbs. Reflexes are trace at the ankles and knees, as well as the wrists. No clonus. Plantar response is downgoing. [id number] is intact. DIAGNOSTICS: Head CT, no acute finding. Cervical spine CT showing advanced disk degeneration at C5-C6 with severe narrowing, sclerosis and osteophyte formation. Normal white count. Sodium was 129 on admission, now 132. BUN 24, now 118; normal creatinine. Blood sugar is 116 to 149, calcium mildly low. CK was 1324. ASSESSMENT AND PLAN: Two similar falls occurring about 1 year apart and with a sense of generalized weakness. The etiology is uncertain. It may be multifactorial. There was a suggestion of fatiguing on examination, though that was not definite. I will go ahead and order some lab work, and we will consider neurophysiology testing if that can be done. His CK was elevated, likely from the fall, but I would also repeat that as well. He also has some evidence of peripheral neuropathy on exam, which could be contributing. He would benefit from physical therapy and occupational therapy evaluations. Thank you for the consultation. We will follow. cc: Marge Palomo MD
--- NOTE | 2019-07-07 07:22 | EKG Report ---
Test Performed on : 07/07/2019 07:04:40 AM Test Reason : afib with rvr Blood Pressure : / mmHG Vent. Rate : 091 BPM Atrial Rate : 144 BPM P-R Int : 000 ms QRS Dur : 090 ms QT Int : 380 ms P-R-T Axes : 000 055 028 degrees QTc Int : 467 ms Atrial fibrillation. Nonspecific ST and T wave abnormality Prolonged QT Abnormal ECG When compared with ECG of 05-JUL-2019 11:14, (Unconfirmed) ST no longer depressed in Inferior leads T wave inversion no longer evident in Inferior leads T wave inversion now evident in Lateral leads Confirmed by Rip TALBOT, Jeremie Garcia ([id number]) on 07/07/2019 2:35:58 PM
[2019-07-07] MEDS: NS 1,000 ML IV SCH (08:36)
[2019-07-07] MEDS: LOPRESSOR PO SCH ×2 (08:36→21:52)
--- NOTE | 2019-07-07 11:12 | ECHO REPORT ---
ORDER DATE: 07/06/2019 INDICATION: Atrial fibrillation, fall. FINDINGS: 1. The right atrium appears normal in size. 2. Trace tricuspid regurgitation. Insufficient data to estimate RV systolic pressure. 3. Normal RV size and systolic function. 4. No significant pulmonic insufficiency. 5. Moderate left atrial enlargement with a dimension of 5.5 cm. 6. No mitral valve prolapse. Mild mitral regurgitation. No clear evidence of mitral stenosis. 7. Normal LV size, end-diastolic dimension of 5.2 cm. Normal wall thicknesses with an intraventricular septal wall thickness of 1.1 cm. LV systolic function appears normal with an estimated EF greater than 55%. The irregularity of the heart rhythm, as well as the increased rate makes accurate evaluation difficult. No obvious segmental abnormalities. 8. Aortic valve opens well. Mild insufficiency. The valve is trileaflet. No stenosis. 9. Aorta appears normal in visualized segments. 10. No pericardial effusion seen. 11. Due to atrial fibrillation, diastolic function is not able to be evaluated. cc: MD Dayan Grissom PA
[2019-07-07] MEDS: NORCO-5 PO PRN ×2 (11:29→21:52)
[2019-07-07] MEDS: MIRALAX PO SCH (12:35)
[2019-07-07] MEDS: METAMUCIL PO SCH (12:38)
[2019-07-07] MEDS ORDERED: LASIX PO ONE (12:40)
--- NOTE | 2019-07-07 14:46 | PROGRESS NOTE ---
DATE: 07/07/2019 INTERVAL HISTORY: No acute events overnight. Mr. Watt complains of some soreness over towards the left side of his chest and left thigh, that usually happens when he is trying to move out of the bed. We discussed about stopping IV fluids. He states he should be okay going home with home physical therapy rather than going to the rehab. His is at bedside. VITALS: Temperature of 97.4 degrees, He did have a fever of 100.6 yesterday. Pulse 100, respiratory rate 18, blood pressure 140/70, he is saturating 98% on room air. PHYSICAL EXAMINATION: Not in any acute distress. Oral cavity is moist. Lungs: Air entry bilaterally equal. No wheeze or rhonchi. Mild decreased air entry with inspiratory crackles at the infrascapular region. Cardiovascular: S1, S2 normal. Irregularly irregular. No murmur, rub, or gallop. Abdomen: Soft, nontender. No lower extremity edema. He does have an increased diameter of the left side of the thigh as compared to the right side, with some superficial bruising visible on the left lateral thigh. LABS: Suggestive of anemia, thrombocytopenia, INR of 2.1, sodium of 132. His kidney function has normalized. No positive microbiological data. No new imaging. Echocardiogram had ejection fraction of 55% without any mitral stenosis. ASSESSMENT AND PLAN: 1. Mechanical fall and lower extremity weakness on presentation. He recently had experienced a viral infection of upper respiratory tract which appeared to be improving. Acetylcholine receptor antibodies have been sent out to the lab. On my current neurological examination, his power appears 5/5 in both lower extremities. Continue physical therapy. It is possible that he has weakness of the lower extremities related to his age, exacerbated by current viral infection. He did not want to go to rehab. 2. Rhabdomyolysis, possibly contributing to hyponatremia on presentation. Now he receives intravenous fluids, which I will stop and considering crackles on examination and slight shortness of breath on physical exertion, I will give him a small dose of Lasix. 3. Acute anemia. He has increased diameter of left thigh as compared to right and some superficial bruising. His anemia could be acute blood loss anemia related to a hematoma formation on the left thigh. I am holding his nighttime warfarin. In the future, based on his course, I would consider giving him vitamin K. I will keep him on omeprazole once a day, considering prior history of bleeding peptic ulcer disease. 4. Atrial fibrillation with rapid ventricular response on presentation. Continue current dose of metoprolol and I am holding his warfarin. Currently, heart rate within mostly acceptable range. 5. Disposition. I am keeping patient inside the hospital as I monitor his blood count. Plan of care discussed with him and his . His questions have been answered. cc: Lex Liang MD
--- NOTE | 2019-07-07 21:35 | NEUROLOGY PROGRESS NOTE ---
DATE: 07/07/2019 Dr. Palomo saw Mr. Watt for Neurology evaluation yesterday. There is history of coughing and possible URI followed by a sense of generalized weakness, prominent weakness in each leg to the point that gait was difficult. The episode resolved spontaneously over several days about a year ago and again this time. This time, he fell and is sore in the left thigh, chest wall and face following that fall. All of that soreness is improved today. He was able to stand and take steps and believes he is now limited by soreness but not by weakness. Lab showed initial elevated CK 1324, mild hyponatremia 129 and then 132, nothing else remarkable. He had temperature 100.6 degrees late yesterday. Otherwise, he has been afebrile. On exam, I cannot find definite loss of muscle power. I examined him supine. He demonstrated good strength on careful testing in all groups in each leg. Limb tone is symmetric. He did well on [id number] testing bilaterally. Reflexes are 2+ at the knees and 1+ at the ankles. Plantar response is silent bilaterally. IMPRESSION: Subjective generalized weakness with spontaneous recovery. There have been 2 episodes. There is concern for myasthenia. He will have EMG study this afternoon. Further plans will depend on that report and on his clinical course. I encouraged him to continue to be careful with activities and to be attentive to his physical therapy. Thanks for asking Neurology to see Mr. Watt. cc: MD WOJCIECH Coronado III
[2019-07-08] MEDS: PRILOSEC PO SCH ×2 (05:57→06:10)
[2019-07-08 06:43] LABS: BASO# 0.01 X1000 (0.0-0.2); BASO% 0.1 % (0.0-0.8); EOS# 0.05 X1000 (0.0-0.7); EOS% 0.7 % (0.0-10.0); HEMATOCRIT 30.1 % (42.0-52.0); HEMOGLOBIN 10.3 g/dL (14.0-18.0); IMM GRAN# 0.02 X1000 (0.0-0.04); IMM GRAN% 0.3 % (0.0-0.5); LYMPH# 0.94 X1000 (1.2-3.4); LYMPH% 13.1 % (20.5-51.1); MCH 33.7 PG (27-31); MCHC 34.2 g/dL (33-37); MCV 98.4 FL (81-99); MONO% 6.9 % (1.7-9.3); MPV 9.6 FL (7.4-10.4); NEUT# 5.68 X1000 (1.4-6.5); NEUT% 78.9 % (42.2-75.2); PLT 144 X1000 (130-400); RBC 3.06 XMIL (4.7-6.1)
[2019-07-08] MEDS ORDERED: LOPRESSOR PO SCH ×2 (07:30→09:00)
[2019-07-08] MEDS: LOPRESSOR IV ONE ×2 (09:16→09:24)
[2019-07-08] MEDS: METAMUCIL PO SCH (09:16)
[2019-07-08] MEDS: MIRALAX PO SCH (09:17)
[2019-07-08 11:57] VITALS: BP 149/97
--- NOTE | 2019-07-08 20:26 | NEUROLOGY PROGRESS NOTE ---
DATE: 07/08/2019 SUBJECTIVE/OBJECTIVE: Mr. Watt reports continued improvement in the soreness and in his gait stability. He does not notice weakness now. His EMG study showed evidence of peripheral neuropathy. He reports no previous diagnosis of diabetes mellitus, B12 deficiency, thyroid disease, previous alcohol abuse, or family history of neuropathy. Repetitive nerve stimulation was normal, showing no evidence of myasthenia gravis or of other neuromuscular transmission defect. Needle EMG showed no evidence of active myopathy. ASSESSMENT/PLAN: I think he could have outpatient workup to look for possible explanations for peripheral neuropathy. I do not have anything other suggestion from Neurology standpoint today. I will be glad to see Mr. Watt again if needed. Thanks for asking us to see him here. cc: MD WOJCIECH Coronado III
[2019-07-08] MEDS ORDERED: COUMADIN PO SCH (21:00)
--- NOTE | 2019-07-08 23:48 | DISCHARGE SUMMARY ---
ADMISSION DATE: 07/05/2019 DISCHARGE DATE: 07/08/2019 DISCHARGE DISPOSITION: Home. DISCHARGE CONDITION: Hemodynamically stable. Mr. Watt denies any chest pain, shortness of breath, palpitation. His strength has improved. He has been able to walk in the hallway using a walker. I educated him about medication changes. I informed and educated him about following up with neurologist for the myasthenia gravis workup as the acetylcholine receptor antibodies are still in the laboratory. He states he would not need any physical therapy at home. DISCHARGE DIAGNOSES: 1. Mechanical fall. 2. Bilateral lower extremity weakness after a mechanical fall with similar episode 1 year ago. 3. Rhabdomyolysis. 4. Hyponatremia. 5. Acute anemia, likely acute blood loss anemia due to intramuscular hematoma on the left lateral thigh. 6. Atrial fibrillation with rapid ventricular response. OTHER DIAGNOSES: 1. History of chronic atrial fibrillation on home anticoagulation. 2. History of mechanical fall with bilateral lower extremity weakness following upper respiratory infection in the year May. 3. Chronic anticoagulation on warfarin. DISCHARGE MEDICATION: 1. Metoprolol 100 mg b.i.d. 2. Warfarin 5 mg at nighttime and 7.5 mg on Wednesdays and Saturdays. VITALS AT THE TIME OF DISCHARGE: Temperature 98.5 degrees, pulse 93, respiratory rate 28, blood pressure 144/71, saturating 100% on room air. PHYSICAL EXAMINATION: Mr. Watt is not in acute distress. The oral cavity is moist. Lungs: Air entry bilaterally equal. No wheeze, rhonchi, crackles. Cardiovascular: S1, S2 normal, irregularly irregular. No murmur or gallop. Abdomen: Soft, nontender. No lower extremity edema. His left thigh hematoma is stable and there is only mild pigmentation of hematoma on the left lateral thigh. He is alert and oriented x3. SIGNIFICANT LABS DURING HOSPITAL ADMISSION AND DISCHARGE: WBC 7.2, hemoglobin 10.3, platelet 144,000. MICROBIOLOGY: Blood culture did not have any growth. SIGNIFICANT IMAGING: Head cervical spine CT did not have any acute injury. Chest x-ray on presentation did not have any acute cardiopulmonary process. Hip, pelvis x-ray did not have any acute injury. Echocardiogram had suggested ejection fraction of 55% without any segmental abnormalities, without any mitral stenosis. No conduction study electromyogram report was pending. HOSPITAL COURSE SUMMARY: Mr. Watt is a 74-year-old man with past medical history of chronic atrial fibrillation on warfarin therapy, who came in after he had a mechanical fall at home the night prior to current presentation. The patient states he was walking in his backyard and his legs suddenly gave out and he was not able to stand up and he fell down. He did not have any loss of consciousness. He was in the lying down position for about 30 minutes before he was able to crawl and call one of his family members. He was not able to stand up after the fall and he was feeling extremely weak, so he decided to come to the hospital. Apparently, he did have episodes of upper respiratory tract infection-related symptoms including runny nose, cough about 2 weeks ago, and he was given a steroid shot and amoxicillin by his primary care physician, which he took for about 2 weeks. The last dose was about 2 weeks ago and, since then, he states he has been feeling a little weak, which was progressively getting worse since the last 2 to 3 days, to an extent that he was developing tremor. He did not have any syncope, dizziness, chest pain or palpitation on presentation. In the emergency room, he was hemodynamically stable, though he was found to have atrial fibrillation with rapid ventricular rate with heart rate of 124. He was also found to have rhabdomyolysis with a creatine kinase of 1400, so hospitalist team was consulted for further management as he also had hyponatremia with sodium of 129. He was monitored in the telemetry unit and was started with intravenous fluid resuscitation and his home beta matt was changed from acebutolol to metoprolol, following which his heart rate became under better control. At the time of discharge, he is around 90 beats per minute with a higher dose of metoprolol. He was advised to resume his warfarin at the time of discharge. He did have an episode of drop in hemoglobin since hospital admission, as his hemoglobin dropped from 12 on presentation to 9, 48 hours after. It was thought to be related to acute blood loss anemia since he has a higher left thigh diameter with superficial hematoma, as compared to right. His warfarin was held and it was monitored. The next day his hemoglobin had stabilized, so it was decided to discharge him on his home warfarin. With regards to bilateral lower extremity weakness, he did not have any focal abnormality on examination and physical therapy was consulted. Neurology was also consulted. The patient apparently had a similar episode about 12 months ago where he suddenly had started developing weakness, especially affecting the lower extremities, where he was not able to get up, which had lasted for several weeks and he had started getting better after that. These were concerning for myasthenia gravis and acetylcholine receptor antibodies were sent out to the laboratory. Electromyogram nerve conduction study was also performed. At the time of dictation, the lab results, as well as nerve conduction study reports are pending. He was advised to have follow up with neurologist outpatient. TIME SPENT: At the time of discharge, more than 30 minutes of time was spent discharging this patient. Plan of care was extensively discussed with the patient. All of his questions were answered. He was advised to have follow up with his regular rfid specialist within 1 week's time. cc: MD WOJCIECH Cam
--- NOTE | 2019-07-09 14:32 | DISCHARGE SUMMARY ---
ADMISSION DATE: 07/05/2019 DISCHARGE DATE: 07/08/2019 DISCHARGE DISPOSITION: Home. DISCHARGE CONDITION: Hemodynamically stable, his atrial fibrillation is very well controlled. His hemoglobin is stable. He is alert, oriented x3. Denies any chest pain, shortness of breath. DISCHARGE DIAGNOSIS: 1. Mechanical fall. 2. Bilateral lower extremity weakness. 3. Traumatic rhabdomyolysis. 4. Hyponatremia due to rhabdomyolysis. 5. Acute blood loss anemia. 6. Atrial fibrillation with rapid ventricular response. 7. Bilateral lower extremity weakness. PAST MEDICAL HISTORY: 1. Mechanical fall and bilateral lower extremity weakness about 12 months ago. 2. Chronic atrial fibrillation. 3. Being on warfarin for atrial fibrillation . 4. Essential hypertension. DISCHARGE MEDICATIONS: Metoprolol 100 mg every 12 hours, warfarin 5 mg at nighttime. VITALS AT TIME OF DISCHARGE: Temperature 97.5 degrees, pulse 85, respiratory 18, blood pressure 149/97 saturating 97 % room air. PHYSICAL EXAMINATION: He did not have any acute distress. Air entry bilateral equal, no wheeze or crackles. Cardiovascular: S1, S2 normal irregularly irregular. No murmur or gallop. Abdomen: Soft, nontender, he has mild hematoma left lateral thigh. He is alert oriented x3. LABS: Hemoglobin of 10.3, INR 2.16, BUN 17, creatinine 0.8, sodium 132 which improved from 07/13, magnesium is 1.8. No positive blood culture data for 48 hours. Echocardiogram had ejection fraction of 55% without regional wall motion abnormality. Head, cervical spine CT did not have acute injury. Chest x-ray did not have any acute cardiopulmonary process. Hip, pelvis x-ray did not have injury . HOSPITAL COURSE SUMMARY: Mr. Watt is 74 years old man who presented on 07/04/2019 with chief complaints of mechanical fall and inability to get up after that he was lying down floor for at least 30 minutes before he could reach out to his son and then he was experiencing extreme weakness of bilateral lower extremities which was not improving for almost 12 to 24 hours so decided come to the hospital. Apparently he had upper respiratory infection prior to presentation about 2 to 4 weeks ago which was treated with a steroid shot. In the emergency room he was found to have atrial fibrillation with rapid ventricular response with heart rate of 124 so admission was requested. Patient's acebutolol was changed to metoprolol following which his heart rate was better controlled. He also had drop in his hemoglobin which decreased from 12 to 9 after 48 hours which was thought to be related acute blood loss anemia due to blood loss in the left lateral thigh though his warfarin dose was held at the next day his hemoglobin had increased to 10 so it was decided to resume warfarin and discharge him. Considering his bilateral lower extremity weakness neurology had been consulted and electromyogram nerve conduction studies were performed which did not have any myasthenia gravis like symptoms though he did have acetyl choline receptor antibody in lab and he was advised to follow up with outpatient provider. At the time of discharge detailed discharge instructions were provided to him. He was advised have followup with his service clerk. cc: Lex Liang MD MTDJessie
--- NOTE | 2019-07-11 11:10 | PROVIDER DOCUMENTATION ---
This chart was entered by Jannet Borrero Scribe, acting as scribe for Fco Sampson MD. HPI-Head Injury - General Chief Complaint: Head Injury Stated Complaint: Fall Time Seen by Provider: 07/05/19 11:03 Source: patient Allergies/Adverse Reactions: Patient Allergies Allergy/AdvReac Type Severity Reaction Status Date / Time doxycycline AdvReac NAUSEA/VOMI Verified 07/05/19 12:07 TING Home Medications: Home Medication List Medication Instructions Recorded Confirmed Last Taken Type Metoprolol [Lopressor] 100 mg PO Q12H #120 tab 07/08/19 Unknown Rx - History of Present Illness-Head Injury Nature of Presenting Problem: Patient is a 74 year old male who presents to the ED via EMS for a head injury. States falling last night. Reports being weak prior to the fall. States he was placed on antibiotics 3 weeks ago due to having a cough and has gradually became weak. Reports he takes Warfarin and it was last check on June 27, 2019 which his PT resulted as 2.7. History of A fib. Head Injury Location: reports: other (left eyebrow) Other injuries associated with incident:: reports: LLE (left thigh) Quality of Pain: reports: aching Severity: reports: mild Onset/Duration: reports: last night Timing: reports: still present Method of Injury: reports: fell Any recent trauma/injury?: reports: to head Injury Associated Symptoms: reports: weakness Locality of Occurance: Home Similar Symptoms Previously?: No Recently seen or treated by another doctor?: Yes Review of Systems - Adult - REVIEW OF SYSTEMS - ADULT Constitutional: reports: no symptoms reported Eyes: reports: no symptoms reported Ears, Nose, Mouth & Throat: reports: no symptoms reported Cardiovascular: reports: no symptoms reported Respiratory: reports: shortness of breath Gastrointestinal: reports: no symptoms reported Genitourinary: reports: no symptoms reported Musculoskeletal: reports: see HPI, muscle weakness, other (left thigh pain) Integumentary: reports: no symptoms reported Neurological: reports: see HPI, other (head injury) Psychiatric: reports: no symptoms reported Endocrine: reports: no symptoms reported Hematologic/Lymphatic: reports: no symptoms reported Allergic/Immunologic: reports: no symptoms reported All Other Systems: Reviewed and Negative Past History - Adult - PAST MEDICAL HISTORY-ADULT Review of Records: reports: Old Records Reviewed, Nursing Assessment Review, Medications Reviewed, Social history reviewed & non-contributory. Major Childhood Illnesses: reports: denies history Cardiovascular: reports: A-Fib Respiratory: reports: denies history Gastrointestinal: reports: denies history Obstetrical/Gynecological: reports: denies history Genitourinary: reports: denies history Musculoskeletal: reports: denies history Neurological: reports: TIA Endocrine/Immune: reports: denies history Other Conditions: reports: denies history - PRIOR SURGERIES/PROCEDURES Surgical/Procedure History: reports: reviewed, not pertinent - IMMUNIZATION STATUS Childhood Immunizations: See Nurse Assessment Flu Vaccine: See Nurse Assessment - FAMILY HISTORY Family History: reviewed, not pertinent - SOCIAL HISTORY Smoking: denies Substance Use: denies Living Situation: family Physical Exam- Neurological - Physical Exam-Neuro Initial Vital Signs Reviewed: Yes General Appearance: alert, no apparent distress HENMT: other (contusion to left eyebrow) Head Injury: other (contusion to left eyebrow) Respiratory: chest non-tender, lungs clear, normal breath sounds Cardiovascular: tachycardia, irregularly irregular Abdominal Exam: normal bowel sounds, non tender, soft 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, 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 Neurologic: grossly normal Integumentary: other (contusion to left eyebrow) Psych/Mental Status: normal mood/affect, normal thought content, normal thought process, oriented x 3 - Glascow Coma Scale Best Eye Response: (4) open spontaneously Best Verbal Response: (5) oriented Best Motor Response: (6) obeys commands Total Glascow Score: 15 Progress - PLAN OF CARE/RESULTS Progress/Plan/Lab Results: 07/05/19 12:15 Blood Culture - Final Blood NO GROWTH AFTER 5 DAYS 07/05/19 11:50 Blood Culture - Final Blood NO GROWTH AFTER 5 DAYS Orders Category Date Time Status Admit - [facility] Routine AdmDCTranf 07/05/19 14:40 Active Cardiac Monitoring DIRECTED Care 07/05/19 11:19 Completed Currently Rec Anticoagulation [QM] ROUTINE Care 07/05/19 14:40 Active IV Insertion ORDERED Care 07/05/19 11:19 Completed Intake and Output-Strict Q 8-HR ASSESS Care 07/05/19 14:40 Active Neurological Check ORDERED Care 07/05/19 14:43 Active Notify MD of + Sepsis Screen NOW Care 07/05/19 11:19 Completed Notify Physician As Ordered Care 07/05/19 11:19 Active Nursing [[facility] Communication Order] DIRECTED Care 07/05/19 15:07 Active Vital Signs Order ROUTINE Care 07/05/19 14:40 Completed Z-Document. for Tele Applied ORDERED Care 07/05/19 14:42 Completed Heart Healthy Diet Diet 07/05/19 14:41 Completed CHEST-1 VIEW [RAD] Stat Exams 07/05/19 11:[address] HEAD/C-SPINE W/O CONTRAST [CT] Stat Exams 07/05/19 10:49 Completed XRAY PELVIS W/HIP 2-3VW LT [RAD] Stat Exams 07/05/19 13:31 Completed BLOOD CULTURE [BLDCUL] Stat Lab 07/05/19 12:15 Completed CBC WITH DIFF [HEME] Routine Lab 07/06/19 05:35 Completed CBC WITH DIFF [HEME] Stat Lab 07/05/19 11:50 Completed CK PROFILE [SP CHEM] Stat Lab 07/05/19 11:50 Completed CK TOTAL [CHEM] Routine Lab 07/05/19 17:05 Completed COMPREHENSIVE METABOLIC PANEL [CHEM] Routine Lab 07/06/19 05:35 Completed COMPREHENSIVE METABOLIC PANEL [CHEM] Stat Lab 07/05/19 11:50 Completed LACTATE, PLASMA [CHEM] Lab 07/05/19 17:05 Completed LACTATE, PLASMA [CHEM] Lab 07/05/19 20:51 Completed LACTATE, PLASMA [CHEM] Q3H Lab 07/05/19 11:55 Completed PROTIME WITH INR [COAG] Stat Lab 07/05/19 11:50 Completed PTT [COAG] Stat Lab 07/05/19 11:50 Completed TROPONIN T HIGH SENSITIVITY Stat Lab 07/05/19 11:50 Completed URINALYSIS W/POSS RFLX CULT [URINALYSIS] Stat Lab 07/05/19 15:49 Completed URINE MANUAL MICROSCOPIC [URINALYSIS] Stat Lab 07/05/19 15:49 Completed 0.9% Sodium Chloride Inj [Ns] 1,000 ml Med 07/05/19 14:45 Discontinued IV 75 mls/hr Diltiazem 100 mg/Ns [Cardizem 100 mg/Ns] Med 07/05/19 11:30 Discontinued 100 mg in 100 ml IV As Directed mls/hr Diltiazem [Cardizem] Med 07/05/19 11:25 Discontinued 20 mg IV NOW ONE Omeprazole [Prilosec] Med 07/06/19 07:00 Discontinued 40 mg PO DAILY@0700 Ondansetron [Zofran] Med 07/05/19 14:40 Discontinued 4 mg IV Q4H PRN PRN Warfarin [Coumadin] Med 07/05/19 21:00 Discontinued 5 mg PO QHS Oxygen Device Stat Oth 07/05/19 11:19 Completed Telemetry [OM.EQ] Routine Oth 07/05/19 14:40 Active EKG [EKG] Stat Ther 07/05/19 11:14 Draft Physical Therapy Eval/Treatment [OM.PT] Routine Ther 07/05/19 14:40 Active Transfer/Admit Order [TRANSFER] Routine Transfer 07/05/19 14:46 Completed Result Diagrams: 07/08/19 05:48 07/07/19 05:46 - EKG 1 Time of EKG reading by physician:: 11:14 EKG Read and Signed by:: Fco Sampson EKG Interpretation (*Must complete 3 of following elements*): Abnormal (rhythm - atrial fibrillation with rapid ventricular response with premature ventricular or aberrantly conducted complexes) Rate: 107 [place]: normal Comments: ST & T wave abnormality, consider inferior ischemia - XRAY 1 XRAY Study: Chest Impression: See EMR Report (Signed CHEST-1 VIEW - 07/05/2019 INDICATION: cough COMPARISON: 06/28/2018 FINDINGS: The lungs are normally expanded and clear. Heart size and mediastinal contours are normal. No pneumothorax or pleural effusion. IMPRESSION: Negative exam. Electronically signed by Adelso De La Rosa 07/05/2019 11:37 AM 07/05/19 1137 Interpreting Physician: Adelso De La Rosa MD Dictated Date/Time: 07/05/19 1136 cc: Fco Sampson MD; Stanislav Ordonez MD) 2 XRAY: Left XRAY Study: Pelvis, Hip Impression: See EMR Report (Signed XRAY PELVIS W/HIP 2-3VW LT - 07/05/2019 INDICATION: fall, injury TECHNIQUE: Three views COMPARISON: None FINDINGS: Bones are intact and normally aligned. There is mild degenerative spurring of the hips bilaterally. There is also mild to moderate degeneration of both sacroiliac joints. IMPRESSION: No acute injury. Electronically signed by Adelso De La Rosa 07/05/2019 1:59 PM 07/05/19 1359 Interpreting Physician: Adelso De La Rosa MD Dictated Date/Time: 07/05/19 1357 cc: Fco Sampson MD; Stanislav Ordonez MD) - CT/MRI 1 CT Study: Cervical Spine, Head Impression: See EMR Report ( CT HEAD/C-SPINE W/O CONTRAST - 07/05/2019 INDICATION: head injury/anticoagulants COMPARISON: None FINDINGS: Head CT: The ventricles and sulci are normal in size and contour. No intracranial mass or hemorrhage. There is mild periventricular white matter chronic microvascular ischemia, notably in the parietal lobes. The skull is intact. The sinuses are clear. Cervical spine: Alignment is anatomic. Vertebral body heights are preserved. There is advanced disc degeneration at C5-C6 with severe narrowing, sclerosis, and osteophyte formation. There is lesser degeneration at other levels as well. No fracture or subluxation. IMPRESSION: No acute injury. This exam was performed using automated exposure control, adjustment of mA or kV according to patient size, and/or use of iterative reconstruction technique Electronically signed by Adelso De La Rosa 07/05/2019 11:17 AM 07/05/19 1117 Interpreting Physician: Adelso De La Rosa MD Dictated Date/Time: 07/05/19 1114 cc: Fco Sampson MD; Stanislav Ordonez MD) - CONSULTS/PCP/HOSPITALIST Notification #1 *Consult/PCP/Hospitalist*: Hospitalist paged at 1320 Time Discussed: 13:28 Reason/Comments: Dr. Sampson consulted with [place] about patient. Consult Disposition: Will see in ED, Admit Departure - Departure Date of Disposition Decision: 07/05/19 Time of Disposition Decision: 13:28 DIAGNOSIS: Generalized weakness, A-fib, Rhabdomyolysis Disposition: ADMITTED INPATIENT 09 Certified Medical Emergency: Emergent Condition: Stable - Critical Care Note This patient required my direct & personal management of CC.: Yes Total Time (mins): 35 Critical Care Statement: This patient required my direct personal management to treat or rule out processes, the absence of which, could potentiallly result in sudden, clinically significant life or limb threatening deterioration. Attestation - Physician/ [facility]NA Attestation Patient care was provided by Advanced Practice Provider:: No The physician spent face to face time with patient:: Yes Advanced Practice Provider documentation review:: Supervising physician onsite and consulted in the evaluation and care of this patient. The physician did have a face to face encounter with the patient. This chart was documented by the indicated scribe, (Jannet Borrero Scribe) and accurately reflects the services I performed and decisions made by me, Fco Sampson MD, as attested by the provider's signature.
== END 2019-07-08 13:43 | disposition home or self-care (01) | DRG 309 ==
LOC: SUPCPDRO → ED 10:42 → SUATTDRO 16:18 → 2N 16:18
PROVIDERS: ATTEND Internal Medicine